=== PATIENT | female | born 1990 | race African-American/Black ===

== ENCOUNTER 2023-01-17 06:15 | Inpatient (IN) | payer OTHER ==
[2023-01-17 07:51] VITALS: BMI 32.8
[2023-01-17] MEDS ORDERED: PHENYLEPHRINE HCL 10 MG/1 ML SINGLE DOSE VIAL ONE (08:15)
[2023-01-17] MEDS ORDERED: morphine SULFATE/PF 1 MG/2 ML (2cc Syringe - QUVA) ONE (08:15)
[2023-01-17] MEDS ORDERED: IBUPROFEN 600 MG TABLET (FP) PO PRN (08:21)
[2023-01-17] MEDS ORDERED: ONDANSETRON 4 MG/2 ML VIAL IVPUSH PRN (08:21)
[2023-01-17] MEDS ORDERED: ACETAMINOPHEN 325 MG TABLET (FP) PO PRN (08:21)
[2023-01-17] MEDS ORDERED: ceFAZolin SODIUM 1 GM VIAL ONE ×2 (08:44)
[2023-01-17] MEDS ORDERED: MIDAZOLAM HCL 2 MG/2 ML SINGLE DOSE VIAL ONE (09:02)
[2023-01-17] MEDS ORDERED: FENTANYL CITRATE/PF 50 MCG/ML VIAL ONE ×2 (09:07→09:37)
[2023-01-17] MEDS ORDERED: ONDANSETRON 4 MG/2 ML VIAL IVPB PRN (09:44)
[2023-01-17] MEDS ORDERED: SENNOSIDES/DOCUSATE COMBO (SENNA PLUS) TABLET (UD) PO PRN (09:44)
[2023-01-17] MEDS ORDERED: IBUPROFEN 800 MG/8 ML IJ IVPB SCH (09:45)
[2023-01-17] MEDS ORDERED: CITRIC ACID/SODIUM CITRATE 30 ML UNIT-DOSE CUP PO ONE (09:50)
[2023-01-17] MEDS: OXYTOCIN 20 UNITS in 0.9% NS 20 UNIT/1,000 ML INFUS.BAG IV SCH ×2 (10:37→20:38)
[2023-01-17] MEDS: ACETAMINOPHEN 1000 MG/100 ML BAG IVPB SCH ×3 (10:37→22:22)
[2023-01-17] MEDS: IBUPROFEN 800 MG/8 ML IJ IVPB SCH ×2 (12:23→20:37)
[2023-01-17] MEDS: SIMETHICONE 80 MG TAB.CHEW (FP) PO PRN (20:38)
[2023-01-18] MEDS: ACETAMINOPHEN 1000 MG/100 ML BAG IVPB SCH (03:27)
[2023-01-18] MEDS: IBUPROFEN 800 MG/8 ML IJ IVPB SCH (03:40)
[2023-01-18 06:15] LABS: BASO % 0.4 % (0-2.0); EOS % 1.6 % (0-4.5); HEMOGLOBIN 9.2 GM/dL (10.7-15.3); LYMPH % 18.4 % (8-40); MCH 31.2 pg (25.7-33.7); MCHC 33.9 g/dl (32.0-36.0); MEAN CELL VOLUME 91.9 fl (80-96); MEAN PLT VOLUME 9.2 fl (7.5-11.1); MONO % 7.4 % (3.8-10.2); NEUT % 72.2 % (42.8-82.8); PLATELET COUNT 141 10^3/uL (134-434); RBC 2.93 M/mm3 (3.60-5.2); RDW 14.4 % (11.6-15.6); WHITE BLOOD COUNT 6.3 K/mm3 (4.0-10.0)
[2023-01-18] MEDS ORDERED: oxyCODONE HCL 5 MG TABLET PO PRN (08:00)
[2023-01-18] MEDS ORDERED: BISACODYL 10 MG SUPP.RECT RC PRN (09:44)
[2023-01-18] MEDS ORDERED: DIPHTH,PERTUSS(ACELL),TET 0.5 ML DISP.SYRIN IM ONE (10:00)
[2023-01-18] MEDS ORDERED: ACETAMINOPHEN 500 MG TABLET (FP) PO PRN (10:00)
[2023-01-18] MEDS: SIMETHICONE 80 MG TAB.CHEW (FP) PO PRN ×2 (11:35→21:09)
[2023-01-18] MEDS: IBUPROFEN 600 MG TABLET (FP) PO PRN ×3 (11:36→21:10)
[2023-01-18] MEDS: FERROUS SO4 325 MG TABLET (FP) PO SCH (16:59)
[2023-01-18] MEDS: OXYTOCIN 20 UNITS in 0.9% NS 20 UNIT/1,000 ML INFUS.BAG IV SCH (17:01)
[2023-01-19] MEDS: IBUPROFEN 600 MG TABLET (FP) PO PRN ×4 (02:59→21:41)
[2023-01-19] MEDS: FERROUS SO4 325 MG TABLET (FP) PO SCH (09:29)
[2023-01-19] MEDS: SIMETHICONE 80 MG TAB.CHEW (FP) PO PRN (21:43)
[2023-01-19 22:05] VITALS: RESP 18
[2023-01-20] MEDS: IBUPROFEN 600 MG TABLET (FP) PO PRN ×2 (02:15→07:42)
[2023-01-20] MEDS: FERROUS SO4 325 MG TABLET (FP) PO SCH (09:57)
[2023-01-20 10:24] VITALS: BP 118/71; PULSE 85; TEMP 98.2
== END 2023-01-20 11:30 | disposition home or self-care (01) | DRG 540 ==
LOC: JLDR 06:15 → J3W 11:30
PROVIDERS: ADMIT Specialist; ATTEND Specialist
PROC: 10D00Z1 Extraction of Products of Conception, Low, Open Approach (ICD-10-PCS; principal; 2023-01-17)
DX: O34.211 Maternal care for low transverse scar from previous cesarean delivery (principal); Z3A.39 39 weeks gestation of pregnancy; Z37.0 Single live birth
CPT/HCPCS: 36415; 85025; 88307-TC; 90715